=== PATIENT | female | born 1990 | race Two or more races ===

== ENCOUNTER 2025-06-15 00:17 | Inpatient (IN) | payer MEDICAID, SELFPAY ==
[2025-06-15] VITALS (54 sets, daily range): BP systolic 90–143; BP diastolic 52–78; PULSE 62–93; RESP 16–98; TEMP 36.6–37.1; O2SAT 93–99; BMI 32.6
[2025-06-15] MEDS: RINGERS LACTATED 1000 ML 1,000 ML 100 ML IV (01:05)
[2025-06-15] MEDS: Ampicillin Inj 2,000 MG in SODIUM CHLORIDE 0.9% (POP) 100 ML 200 MG IV (01:27)
[2025-06-15 01:46] LABS: Basophils # (Auto) 0.0 Thou/mm3 (0.0-0.2); Basophils % (Auto) 0 % (0-2.5); Eosinophils # (Auto) 0.0 Thou/mm3 (0.0-0.5); Eosinophils % (Auto) 0 % (0-10); Hematocrit 39.3 % (36.0-46.0); Hemoglobin 13.5 g/dL (12.0-16.0); Immature Granulocytes Auto 0.14 Thou/mm3 (0.00-0.00); Lymphocytes # (Auto) 2.2 Thou/mm3 (1.0-4.8); Lymphocytes % (Auto) 12 % (10-50); Mean Corpuscular HGB Conc 34.4 g/dl (31.0-37.0); Mean Corpuscular Hemoglobin 32.4 pg (25.0-35.0); Mean Corpuscular Volume 94 fL (80-100); Monocytes # (Auto) 1.1 Thou/mm3 (0.0-0.8); Monocytes % (Auto) 6 % (0-12); Neutrophils # (Auto) 15.1 Thou/mm3 (1.8-7.7); Neutrophils % (Auto) 81 % (37-80); Nucleated Red Blood Cell # 0.00 Thou/mm3 (0.00-0.00); Nucleated Red Blood Cell % 0 /100 WBC (0); Platelet Count 219 Thou/mm3 (140-440); RDW Standard Deviation 47.8 fL (36.4-46.3); Red Blood Count 4.17 Miln/mm3 (4.00-5.20); White Blood Count 18.6 Thou/mm3 (3.6-11.0)
[2025-06-15 02:53] LABS: Hepatitis B Surface Antigen Non Reactive (Non React); Rubella, IgG Antibody Reactive (Immune)
[2025-06-15 02:55] LABS: Syphilis Nonreactive (Nonreactive)
[2025-06-15 03:46] LABS: HIV (1&2) Antibody Rapid Non-Reactive
[2025-06-15] MEDS: fentaNYL CIT INJ 50 mCg/ML AMP 2ML 100 MCG IVP ×2 (05:00→06:13)
[2025-06-15] MEDS: Ampicillin Inj 1,000 MG in SODIUM CHLORIDE 0.9% (Popper) 50 ML 50 MG IV (05:56)
--- NOTE | 2025-06-15 06:18 | ESHP_ITS ---
Documentation for date of: 06/15/25 OB Labor/Induct. HPI History of Present Illness Chief complaint: Leaking fluid, contractions : 4 Para: 3 Term pregnancies: 3 pregnancies: 0 Living children: 3 History of Abortions: Spontaneous and Elective: 0 History of Vaginal deliveries: 3 History of sections: No History of : No ARNAV: 06/17/25 Gestational Age (weeks): 39 Gestational Age (days): 5 History of present illness: Patient is a 34-year-old -0-0-[address] Quevedo and no records available presented to the hospital at 39-5/7 weeks at 0017 06/15/25 reporting contractions and leaking fluid. She stated she might of started leaking fluid at 7:00 in the morning on 06/14/2025. No labs available. No records available or drawn. Unknown group B strep. Ampicillin started. She is Slovak-speaking only. Last baby was born 10 years ago. History of Present Dating criteria: other (No records) Ultrasounds: other (No records) Obstetrical complications: other (Per patient no obstetrical complications. No records) Medical complications: other (Per patient no medical complications. No records) Labs Maternal Blood Type: O Pos Labs: Unknown: RPR, Hepatitis B, Rubella Titre, HIV, Chlamydia, Gonorrhea, Herpes Type 1, Herpes Type 2 and Group Beta Strep Past Medical History Surgical History SURGICAL: Negative Section Past Medical History Comments PMH COMMENT: History of vaginal delivery x 3. Denies any chronic medical conditions. Meds Home Medications and Allergies Home Medications ?Medication ?Instructions ?Recorded ?Confirmed ?Type vit no.95-ferrous 1 tab PO QDAY 06/15/2505/21 History fumarate 28 mg-folic acid 800 mcg tablet () Allergies Allergy/AdvReac Type Severity Reaction Status Date / Time No Known Allergies Allergy Verified 06/15/25 01:15 OB Exam Physical Exam Vital signs: Temp Pulse Resp BP Pulse Ox O2 Del Method 98.2 F 74 16 116/56 L 93 L Room Air 06/15/25 00:17 06/15/25 05:51 06/15/25 00:17 06/15/25 05:51 06/15/25 01:05 06/15/25 00:17 Detailed Labor and Delivery Exam Dilation (cm): 6 Effacement (%): 80 Cervix position: mid station: -2 Consistency: soft Presentation: Vertex Membranes: ruptured Amniotic fluid: clear monitor accelerations: 15x15 monitor decelerations: None nursing home variability: Moderate (11-25) Contraction frequency (min): Irregular OB Results Labs 06/15/25 01:21 Labs: Short CBC 06/15/25 Range/Units 01:21 WBC 18.6 H (3.6-11.0) Thou/mm3 Hgb 13.5 (12.0-16.0) g/dL Hct 39.3 (36.0-46.0) % Plt Count 219 (140-440) Thou/mm3 OB Assessment & Plan Assessment and Plan (1) Supervision of high risk in third trimester: Status: Acute Assessment and plan: Admit patient. Anticipate . Draw all labs. Ampicillin for unknown group B strep Additional Plan Induction method: none Plan: anticipate NVD
--- NOTE | 2025-06-15 06:52 | PC.NURSE ---
EDUCATION AND PLAN OF CARE DISCUSSED VIA BRONC BREAKER LIZA ID# [id number]
[2025-06-15] MEDS: MINERAL OIL 30 ML UDC TOP (07:47)
[2025-06-15] MEDS: OXYTOCIN in NS 20 units 20 UNIT/1,000 ML BAG 125 UNIT IV (07:49)
[2025-06-15 07:50] LABS: Amphetamine/Metham Scrn,Ur OB Negative (Negative); Benzoylecgonine Screen, Ur OB Negative (Negative); Opiate Screen,Urine OB Negative (Negative); THC Screen,Urine OB Negative (Negative)
[2025-06-15] MEDS: METHYLERGONOVINE INJ 0.2 MG/ML VIAL IM (07:53)
[2025-06-15] MEDS: TRANEXAMIC ACID 1,000 MG IVPB 1,000 MG/100 ML BAG 200 MG IV (07:54)
[2025-06-15] MEDS: LIDOCAINE HCL 1% 20 ML VIAL INFL (07:55)
[2025-06-15] MEDS: BENZO/LANO/ALOE (Dermoplast) 60 GM CAN 1 SPRAY TOP (07:57)
--- NOTE | 2025-06-15 08:09 | PD.LDDELS ---
Data ([place]) Data Hx Section: No : 4 Term: 3 : 0 Livin Abortions: Spontaneous & Theraputic: 0 Delivery Data ([facility]) Labor Data ROM date: 06/14/25 ROM time: 07:00 Amniotic membrane rupture type: Artificial Amniotic fluid description: Blood Tinged Delivery Data Onset of labor date: 06/14/25 Onset of labor time: 04:00 Complete dilation date: 06/15/25 Complete dilation time: 07:00 [place] delivery date: 06/15/25 delivery time: 07:49 Placenta delivery date: 06/15/25 Placenta delivery time: 07:51 Stage 1 total time: Labor - Stage 1 Duration 27 hours and 0 minutes Delivered by: Dr Mcmullen Delivery Method Presentation: Vertex
--- NOTE | 2025-06-15 08:09 | PD.GYNPROC ---
Operative Note - REVENUE INTEGRITY ANALYST Procedure Date of procedure: 06/15/25 Procedure Performed: Vacuum-assisted vaginal delivery, right mediolateral episiotomy Joey maneuver for shoulder dystocia Indication: Poor maternal pushing effort with bradycardia Shoulder dystocia Anesthesia type: None Procedure description: Patient was pushing with station at +2. Maternal pushing effect was inadequate. There was bradycardia going down to 60 bpm with very slow recovery. The vacuum was shown to the patient and informed consent was obtained. Maternal consent was obtained and a right mediolateral episiotomy was performed taking care to protect the head with the fingers. With pushing the vacuum cup was applied at the head taking care to exclude maternal tissues. 1 pull was applied and the head was delivered up to the occiput. Subsequently the head was delivered spontaneously with maternal pushing effort. The head was delivered in the left occipital position. The head restituted to the left occipital posterior position downward traction was applied and the shoulder could not be delivered. At this time a shoulder dystocia was called and Joey maneuver was applied. The posterior shoulder was delivered first followed by the anterior shoulder. The rest of the trunk and the body were delivered without much effort. The fetus was placed on the mother's abdomen, umbilical cord was doubly clamped divided and the infant was handed over to the waiting team. Placenta was delivered by gentle traction on the umbilical cord and fundal massage. The vaginal canal was inspected and no additional lacerations were identified. The episiotomy was repaired using 2-0 Vicryl in the usual fashion after instillation of lidocaine. The perineum was cleaned using a moist laparotomy sponge. Fundal massage was performed and the fundus was noted to be firm. The patient was given Methergine intramuscularly and tranexamic acid IV in addition to the Pitocin bolus. All instrument, sponge and sharp counts were correct x 2. Specimen: none Estimated blood loss (ml): 400 Complications: none Diagnosis Discharge Diagnosis (1) Vaginal delivery: Status: Acute (2) Vacuum-assisted vaginal delivery: Status: Acute (3) bradycardia affecting management of mother, delivered: Status: Acute Problem List Completed Was Problem List Reviewed/Reconciled?: Yes
[2025-06-15 12:07] LABS: Chlamydia trachomatis PCR Negative (Not Detect); Neisseria Gonorrhoeae DNA PCR Negative (Not Detect); Trichomonas Negative (Negative)
[2025-06-15] MEDS: ceFAZolin/D5W 2 GM IV 2 GM/100 ML BAG IV ×2 (17:02→22:01)
--- NOTE | 2025-06-15 21:54 | PC.NURSE ---
called pharmacy regarding patient's dose of ancef antibiotics, last dose given at around 1700, per pharmacy next dose can be given at 2200.
[2025-06-16 04:20] VITALS: BP 100/60; PULSE 62; RESP 16; TEMP 36.6; O2SAT 95
[2025-06-16] MEDS: ceFAZolin/D5W 2 GM IV 2 GM/100 ML BAG IV (05:53)
[2025-06-16 05:55] LABS: Basophils # (Auto) 0.1 Thou/mm3 (0.0-0.2); Basophils % (Auto) 0 % (0-2.5); Eosinophils # (Auto) 0.0 Thou/mm3 (0.0-0.5); Eosinophils % (Auto) 0 % (0-10); Hematocrit 34.7 % (36.0-46.0); Hemoglobin 11.6 g/dL (12.0-16.0); Immature Granulocytes Auto 0.14 Thou/mm3 (0.00-0.00); Lymphocytes # (Auto) 3.5 Thou/mm3 (1.0-4.8); Lymphocytes % (Auto) 19 % (10-50); Mean Corpuscular HGB Conc 33.4 g/dl (31.0-37.0); Mean Corpuscular Hemoglobin 32.0 pg (25.0-35.0); Mean Corpuscular Volume 96 fL (80-100); Monocytes # (Auto) 1.1 Thou/mm3 (0.0-0.8); Monocytes % (Auto) 6 % (0-12); Neutrophils # (Auto) 13.2 Thou/mm3 (1.8-7.7); Neutrophils % (Auto) 73 % (37-80); Nucleated Red Blood Cell # 0.00 Thou/mm3 (0.00-0.00); Nucleated Red Blood Cell % 0 /100 WBC (0); Platelet Count 191 Thou/mm3 (140-440); RDW Standard Deviation 49.4 fL (36.4-46.3); Red Blood Count 3.63 Miln/mm3 (4.00-5.20); White Blood Count 18.1 Thou/mm3 (3.6-11.0)
[2025-06-16 08:00] VITALS: BP 108/64; PULSE 70; RESP 16; TEMP 36.6; O2SAT 97
--- NOTE | 2025-06-16 08:01 | OBDSUM_ITS ---
Data ([facility]) Data Hx Section: No : 4 Term: 3 : 0 Livin Abortions: Spontaneous & Theraputic: 0 Delivery Data ([facility]) Labor Data Initiation of labor: Spontaneous Induction/Augmentation Agent: None ROM date: 06/14/25 ROM time: 07:00 Amniotic membrane rupture type: Artificial Amniotic fluid description: Blood Tinged Delivery Data Onset of labor date: 06/14/25 Onset of labor time: 04:00 Complete dilation date: 06/15/25 Complete dilation time: 07:00 delivery date: 06/15/25 [place] delivery time: 07:49 Placenta delivery date: 06/15/25 Placenta delivery time: 07:51 Stage 1 total time: Labor - Stage 1 Duration 27 hours and 0 minutes Delivered by: Sawyer Vo Delivery nurse: Katya Louis RN [place] nurse: Dagoberto Bledsoe RN Slate Trimmer at delivery: No Support person(s) at delivery: fob Other staff at delivery: Lucrecia Morris CARDIOPULMONARY TECHNICIAN AND EEG TECHlaundry attendant Method Delivery method: Normal Vaginal Delivery Presentation: Vertex Anesthesia Type Anesthesia Type: Local Anesthesia type: None Placenta Placenta delivery description: Spontaneous Cord blood sent to lab: Yes cord blood collection: Cord Blood Type Episiotomy Episiotomy description: Right Mediolateral Umbilical Cord cord description: 3 Vessels [place] Data ([facility]) Data order: 1 's gender: Female Identification band number: [id number] weight (gms): 3895 g Weight (pounds): 8 lbs and 9.4 ozs length: 52.07 cm 1 minute: 5 5 minutes: 9
--- NOTE | 2025-06-16 08:02 | ESPR_ITS ---
Subjective Subjective Interval history: Delivery type: Vacuum-assisted vaginal delivery and shoulder dystocia Patient doing well this morning. No acute complaints. Ambulating, tolerating p.o., and voiding without difficulty. HTN/Pre-E screen negative: No CP, SOB, QURESHI, visual changes, RUQ pain. : Yes Lochia: diminishing Bowel: Flatus + / BM + UOP: Voiding freely Exam Vital Signs Temp Pulse Resp BP Pulse Ox O2 Del Method 97.9 F 62 16 100/60 95 Room Air 06/16/25 04:20 06/16/25 04:20 06/16/25 04:20 06/16/25 04:20 06/16/25 04:20 06/16/25 04:20 Constitutional Constitutional: no acute distress Routine HEENT Exam Head: Present normocephalic and atraumatic Eye: Present EOMI and PERRL ENT: Present mucous membranes moist Routine Neck Exam Neck: Present supple and trachea midline Routine Respiratory Exam Respiratory: Present chest non-tender, lungs clear, normal breath sounds and no resp distress Routine Cardiovascular Exam Cardiovascular: Present RRR Routine Abdominal Exam Abdominal: Present soft and normoactive bowel sounds Routine Extremities Exam Extremities: Present full ROM Routine Skin Exam Skin: Present intact, dry and warm Routine Neurological Exam Neurological: Present alert, oriented X3 and CN II-XII intact Routine Psychiatric Exam Psychiatric: Present normal affect and normal thought process Objective Labs 06/16/25 04:45 Labs: Laboratory Results - last 24 hr 06/15/25 06/16/25 00:25 04:45 WBC 18.1 H RBC 3.63 L Hgb 11.6 L Hct 34.7 L MCV 96 MCH 32.0 MCHC 33.4 RDW Std Deviation 49.4 H Plt Count 191 Neut % (Auto) 73 Lymph % (Auto) 19 [place] % (Auto) 6 Eos % (Auto) 0 Baso % (Auto) 0 Neut # (Auto) 13.2 H Lymph # (Auto) 3.5 [place] # (Auto) 1.1 H Eos # (Auto) 0.0 Baso # (Auto) 0.1 Immature Gran # (Auto) 0.14 H Absolute Nucleated RBC 0.00 Immature Gran % 1 H Nucleated RBC % 0 Chlam trachomat DNA PCR Negative N.gonorrhoeae DNA (PCR) Negative Trichomonas DNA Probe Negative Assessment & Plan Problem List (1) Vaginal delivery: Status: Acute (2) Vacuum-assisted vaginal delivery: Status: Acute Assessment and plan: 1. Continue routine /post-op care 2. Labs reviewed, cbc appropriate 3. Remove dressing/Paiz 4. Encourage to ambulate, shower 5. Encourage PO intake, breast feeding (3) bradycardia affecting management of mother, delivered: Status: Acute Time Spent With Patient Time: Total time spent is greater than 50% in coordination of care (as documented) at patient's floor/unit and/or counseling patient:
--- NOTE | 2025-06-16 08:03 | PD.LDDS ---
DS: Providers Provider Date of admission: 06/15/25 00:58 Primary care physician: Physician No Primary/Family Admitting Provider: Geri Mcmullen MD ([facility]) Attending Provider on Admission: eRanna Michel MD Consults: 06/15/25 08:24 Referral Routine Comment: Attending Provider on DC: Sawyer Vo MD Discharging Provider: Sawyer Vo MD DS: Diagnosis Discharge Diagnosis (1) bradycardia affecting management of mother, delivered: Status: Acute (2) Vacuum-assisted vaginal delivery: Status: Acute Problem List Completed Was Problem List Reviewed/Reconciled?: Yes Summary/Hosp Course Brief History: Patient is a 34-year-old -0-0-[address] Quevedo and no records available presented to the hospital at 39-5/7 weeks at 0017 06/15/25 reporting contractions and leaking fluid. She stated she might of started leaking fluid at 7:00 in the morning on 06/14/2025. No labs available. No records available or drawn. Unknown group B strep. Ampicillin started. She is Pashto-speaking only. Last baby was born 10 years ago. Peripartum Data Delivery Method: Normal Vaginal Delivery Episiotomy Description: Right Mediolateral Time Spent with Patient Time attestation: Total time spent providing and/or coordinating discharge services: Exam Vital Signs Temp Pulse Resp BP Pulse Ox O2 Del Method 97.9 F 62 16 100/60 95 Room Air 06/16/25 04:20 06/16/25 04:20 06/16/25 04:20 06/16/25 04:20 06/16/25 04:20 06/16/25 04:20 Discharge Plan Plan Patient Disposition: HOME (Self Care) Disposition Comment: Please see Dr Quevedo in 3 weeks Patient condition on transfer: Stable Prescriptions/Referrals Prescriptions/Med Rec: New docusate sodium [Stool Softener] 100 mg capsule 100 mg PO QDAY 30 Days Qty: 30 0RF ibuprofen 600 mg tablet 600 mg PO Q6H MDD 4 PRN (Reason: fever or pain) 10 Days Qty: 40 0RF Continued PNV no.95-ferrous fumarate-FA [] 28 mg iron- 800 mcg tablet 1 tab PO QDAY Referrals: Ghulam Quevedo MD [Referring Provider] No Primary/Family,Physician [Primary Care Provider] Patient/Caregiver Discharge Instructions Meds to Beds: Yes Education Materials: After a Vaginal , After Delivery [place] Concerns, Incision Care After Vaginal , Feel Healthy After Print Language: Pashto Stand Alone Forms: Norah Award Info., Patient Portal Info Letter Discharge Order Discharge Orders: Discharge (Routine); Ordered 06/16/25 Ordered By: Sawyer Vo Planned Discharge Date 06/16/25
[2025-06-16] MEDS: DOCUSATE SOD 100 MG CAPSULE PO (08:06)
--- NOTE | 2025-06-16 12:18 | PC.SS ---
Reason for referral: No record. Role and purpose of today?s contact explained to patient and spouse Marcos Campos. Verbal consent provided by patient to allow spouse to be present. Patient confirmed her demographic information: [address] [address]. Patient?s medical surrogate decisionmaker is her spouse, Marcos Campos [phone]. 34YO Female, delivered female vaginally. Patient reports this is her 4th child. Patient reports she has 3 male children at home with family, 10YO, 15YO, and 16YO. Patient reported her support system consists of her spouse. Patient will be infant. Patient disclosed she is currently unemployed due to of child. 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 Patient reports she has all supplies for infant and including carseat for transportation. Patient denied having history of CWS involvement and denied DV exposure as well. Spouse to transport at discharge. Patient denies being connected with [place] and [facility]. She declined linkage. Community Resource Document explained and provided. FAZAL Oliveira informed. No additional concerns reported. CENTRIFUGAL SEPARATOR: Dr. Quevedo, f/u appt. set for 07/27/25. SIX SIGMA BLACK TRAINER: CANDELARIA Saunders , appt. pending.
== END 2025-06-16 16:45 | disposition home or self-care (01) | DRG 560 ==
LOC: S4SX 10:05 → S4NX 10:21
PROVIDERS: Obstetrics & Gynecology; Admitting Provider Obstetrics & Gynecology; Visit Provider Obstetrics & Gynecology
DX: O66.0 Obstructed labor due to shoulder dystocia (principal); O76 Abnormality in fetal heart rate and rhythm complicating labor and delivery; Z37.0 Single live birth; Z3A.39 39 weeks gestation of pregnancy
CPT/HCPCS: 36415; 59025; 59409; 80307; 85025; 86703; 86762; 86780; 86850; 86900; 86901; 87340; 87491; 87591; 87661; 94762; J0290; J0689; J2210; J2590; J3010; J3490; J7050; J7120; A9270